=== PATIENT | male | born 1960 | race Caucasian/White ===

== ENCOUNTER 2017-05-17 06:32 | Day surgery (SDC) | payer OTHER ==
--- NOTE | 2017-05-13 07:58 | CONS ---
Date/Time of Note Date/Time of Note DATE: 05/13/17 TIME: 07:26 Assessment/Plan Assessment/Plan Problems: (1) Right rotator cuff tear Status: Acute Comment: This gentleman is being brought in electively for repair right rotator cuff tear after failure of conservative treatment. At this time he is an acceptable surgical candidate and I concur with your plans to proceed with surgery. He is at average surgical risk as compared to his age-matched peers and should do well using all standard and routine anesthesia precautions. Please note my major concern is his history of pulmonary emboli. As such in coordination with his engagement mgr he will be on prophylactic therapy specifically be on Xarelto postoperative as prophylaxis. Qualifiers: Qualified Code: M75.101 - Tear of right rotator cuff, unspecified tear extent (2) Hx pulmonary embolism Status: Resolved Comment: This is a historical issue. However given that this happened with a prior shoulder arthroscopy he does raise a certain level of concern. He will be treated with Xarelto postoperatively. In addition his peripheral prophylaxis of an aspirin a day will be held only 5 days prior to presentation for the surgical procedure in coordination with his engagement mgr at [facility]. Consultation Date/Type/Reason Admit Date/Time May 17 2017 Date of Consultation: May 10, 2017 Type of Consultation: Preop-internal medicine Reason for Consultation At risk for recurrent pulmonary embolism Referring Provider: OLIVIA TILLMAN MD Hx of Present Illness Charming 57-year-old gentleman who is being brought in electively for repair right shoulder torn rotator cuff via arthroscopic approach Constitutional: no complaints Eyes: no complaints ENT: other (Rhinitis with postnasal drip otherwise negative; Dr. Teran is the ENT) Respiratory: no complaints Cardiovascular: no complaints Gastrointestinal: no complaints Genitourinary: no complaints Musculoskeletal: other (Right shoulder pain and limited motion) Skin: no complaints Neurologic: no complaints Endocrine: no complaints Lymphatic: no complaints (Tool Liaison is Dr. Jalen Schilling of [facility]) Psychological: nl mood/affect, no complaints Immunologic: no complaints Past Medical History History of postoperative bilateral pulmonary emboli; torn right rotator cuff; elevated intraocular pressure right eye-glaucoma; history of cluster headache syndrome; usual childhood diseases; history of varicella Past Surgical History Is post right shoulder arthroscopy; status post cataract excision and intraocular lens implantation right eye; status post laser treatment right eye; status post balloon sinus plasty Family History Significant Family History: asthma Social History Alcohol Use: occasionally Smoking Status: Current every day smoker Drug Use: none Exam/Review of Systems Vital Signs Vitals Equals 5 feet 7 inches; weight equals 169; temperature equals 98.2; pulse equals 68; blood pressure equals 128/64 Exam Constitutional: alert, oriented Psych: nl mood/affect, no complaints Head: atraumatic, normocephalic Eyes: EOMI, nl conjunctiva, nl lids, nl sclera ENMT: mucosa pink and moist, nl external ears & nose, nl lips & teeth, nl nasal mucosa & septum Neck: non-tender, supple Respiratory: clear to auscultation, normal air movement Cardiovascular: nl pulses, regular rate and rhythm Gastrointestinal: nl liver, spleen, non-tender, soft Genitourinary - Male: nl penis, nl scrotum Musculoskeletal: nl extremities to inspection, nl gait and stance (Limited range of motion of the right shoulder) Extremities: normal pulses Neurological: SUPERINTENDENT TESTS II-XII intact, nl mental status, nl speech, nl strength Skin: nl turgor, rash or lesions Lymph: nl lymph nodes Copies To: CC: OLIVIA TILLMAN MD, JOSHUA A MD May 13, 2017 07:36
[2017-05-17] VITALS (19 sets, daily range): BP systolic 113–152; BP diastolic 56–89; PULSE 59–91; RESP 8–20; Ht 170.2 cm; Wt 75.0 kg
[~2017-05-17] VITALS: Ht 170.2 cm; Wt 75.0 kg
[~2017-05-17 06:32] MED LIST: BUPIVACAINE 0.5% (SDV) 30 ML, morphine SULFATE (PF) 8 MG, EPINEPHrine 0.3 MG, KETOROLAC... IRR SCH; CEFAZOLIN 2 GM/50 ML (PMX) 50 ML IVPB SCH; DEXAMETHASONE 1 MG TAB PO SCH; GABAPENTIN 300 MG CAP PO SCH; TRANEXAMIC ACID 1,000 MG in SOD CHLORIDE 0.9% 100 ML IVPB SCH
--- NOTE | 2017-05-17 06:52 | HPN ---
Date/Time of Note Date/Time of Note DATE: 05/17/17 TIME: 06:52 Interval H&P Admission Note Pt. seen H&P reviewed: No system changes OLIVIA TILLMAN MD May 17, 2017 06:52
[2017-05-17] MEDS ORDERED: DOXY100T20 PO (07:29)
[2017-05-17] MEDS: traMADol 50 MG TAB PO SCH ×2 (08:00→13:27)
[2017-05-17] MEDS ORDERED: BUPIVACAINE 0.5%/EPI (SDV) 10 ML INJ ONE (09:22)
[2017-05-17] MEDS ORDERED: CA CHLORIDE 10% 10 ML SYRINGE ONE (09:22)
[2017-05-17] MEDS ORDERED: THROMBIN 5000 UNIT VIAL ONE (09:22)
[2017-05-17] MEDS ORDERED: POLYMYXIN/BACITRACIN 1L IRRIG ONE (09:22)
[2017-05-17] MEDS ORDERED: ROPIVACAINE 0.5 % 30 ML VIAL ONE (09:29)
[2017-05-17] MEDS ORDERED: METOCLOPRAMIDE 10 MG INJ ONE (09:29)
[2017-05-17] MEDS ORDERED: PROPOFOL 20 ML ONE (09:29)
[2017-05-17] MEDS ORDERED: CEFAZOLIN 1 GM INJ ONE (09:29)
[2017-05-17] MEDS ORDERED: FENTAnyl 50 MCG/ML VIAL ONE (09:29)
[2017-05-17] MEDS ORDERED: MIDAZOLAM 1 MG/ML 2 ML INJ ONE (09:30)
[2017-05-17] MEDS ORDERED: DIPHENHYDRAMINE 50 MG INJ IV PRN (10:00)
[2017-05-17] MEDS ORDERED: HYDROmorphONE (0.2 MG/ML) 10ML SYG IV PRN ×3 (10:00)
[2017-05-17] MEDS ORDERED: ONDANSETRON 4 MG INJ IV PRN (10:00)
[2017-05-17] MEDS ORDERED: MEPERIDINE 25 MG INJ IV PRN (10:00)
[2017-05-17] MEDS ORDERED: METOCLOPRAMIDE 10 MG INJ IV PRN (10:00)
--- NOTE | 2017-05-17 11:23 | PDOCDIS ---
Discharge Instructions DIAGNOSIS Discharge Diagnosis Rotator cuff tear right shoulder CONDITION Patient Condition: Good HOME CARE INSTRUCTIONS: Diet Instructions: Regular ACTIVITY: Activity Restrictions: Slowly Increase Activity Keep Limb Elevated Bathing Restrictions: Shower FOLLOW UP/APPOINTMENTS Follow-up Plan 2 weeks SCHOOL/WORK RELEASE May return to School/Work with: With Restrictions School/Work Release Comment: 5 pounds tabletop use for 6 weeks OLIVIA TILLMAN MD May 17, 2017 11:23
--- NOTE | 2017-05-17 11:32 | OPR ---
Date/Time of Note Date/Time of Note DATE: 05/17/17 TIME: 11:24 Operative Report Procedure Date: May 17, 2017 Preoperative Diagnosis Rotator cuff tear right shoulder Postoperative Diagnosis 1. Shoulder rotator cuff tear 2. 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 Right shoulder partial biceps tendon tear Operation Performed 1. Open right shoulder rotator cuff repair 2. Right open distal clavicle excision 3. Right open biceps tenodesis Surgeon: OLIVIA TILLMAN MD Manager Icu: DONALD CUENCA MD Anesthesia Type: general Estimated Blood Loss: 10 - 50 ml's Transfusion Required: no Specimen: none Complications: no Pt Condition Post Procedure: stable Disposition: PACU Procedure Description SET BUILDER SURGEON: Donald Cuenca MD was asked to be present for this case at my request. Assistance was necessary as a result of the highly technical nature of this operation. When performing an open total shoulder replacement, it is critical to have a trained regional administrative assistant who is an expert in handling the extremity and assisting the surgeon in tasks such as suture management and knot- tying techniques as well as implants. This assistance cannot be performed by a school bus technician, as it is considered an integral part of the procedure and the regional administrative assistant should be compensated for their time. PROCEDURE IN DETAIL: Following the administration of general anesthesia supplemented with a peripheral nerve block for postoperative pain control, the patient placed in the beach chair position. Sterile prep and drape was then undertaken. An extended saber incision was then carried through the superior aspect exposing the superior aspect exposing the deltotrapezial fascia. An incision was then made from medial to lateral across the acromioclavicular joint detaching the anterior head of the deltoid and splitting the anterolateral corner to expose the subacromial space. Severe bursal reactive tissue was noted and this was all debrided. The distal clavicle was then noted to have significant arthritic changes. The distal clavicle was skeletonized for a distance of 1 cm and using an osteotome 1 cm of the lateral clavicle was then excised decompressing the joint nicely. Attention was then directed to the rotator cuff. The rotator cuff repair that had been done previously had avulsed the sutures with were all pulled out of the anchors. The sutures were removed and a defect of the superior rotator cuff was then noted. This measured about 2 x 1 cm with 1 cm of medial retraction. The biceps tendon was identified and it had moderate fraying within the groove. The intra-articular portion was resected and the biceps was tenodesed to the bicipital groove with solid fixation using multiple #2 sutures. Attention was then directed back to the rotator cuff. The tissue was mobilized in the subacromial space cleared of scar tissue as well as a release of the coracohumeral ligament. 2 5.5 mm metal anchors were then placed in the tuberosity. Each of these was triple loaded. All of the sutures were then passed through the rotator cuff. Following this a graft jacket allograft was then prepared in the size to cover the defect. The graft jacket was then passed through the 6 sutures. The 6 sutures were then tied to each other bringing the cuff down along with the graft jacket tissue. 2 additional lateral anchors were then placed these were 5.5 mm push in anchors. The sutures from the prior repair were incorporated into it in order to create a large footprint. The joint was then mobilized and no significant tension was noted. The rotator cuff was seen to be closed completely. The deltoid was then reapproximated through drill holes using #2 permanent sutures a watertight closure of the deltoid was completed. The wound was then thoroughly irrigated, the deep tissues were approximated using #1 suture followed by closure of the deep layer using 2-0 Monocryl. The skin was closed using 4-0 Monocryl suture, and a Prenio dressing. An Ultrasling was then applied. The patient was awakened and transported to the recovery room in stable condition. Estimated blood loss for this procedure was 50 cc. OLIVIA TILLMAN MD May 17, 2017 11:32
[2017-05-17] MEDS ORDERED: ONDANSETRON 4 MG INJ ONE (12:27)
[2017-05-17] MEDS ORDERED: HYDROmorphONE 2 MG/ML SYG ONE (12:27)
== END 2017-05-17 15:00 | disposition home or self-care (01) ==
LOC: SDS 06:32
PROVIDERS: ATTEND Orthopaedic Surgery
DX: M75.101 Unspecified rotator cuff tear or rupture of right shoulder, not specified as traumatic (principal); M13.811 Other specified arthritis, right shoulder; S46.211D Strain of muscle, fascia and tendon of other parts of biceps, right arm, subsequent encounter; X58.XXXD Exposure to other specified factors, subsequent encounter
CPT/HCPCS: 29824; 29827; 29828; 86999; J0171; J0690; J0735; J1170; J1885; J2250; J2274; J2405; J2765; J2795; J3010; J3370; Q4107